=== PATIENT | female | born 1980 | race Caucasian/White ===

== ENCOUNTER 2018-11-15 12:56 | Emergency (ER) | payer OTHER ==
[~2018-11-15] VITALS: Ht 152.4 cm; Wt 62.6 kg
[2018-11-15] MEDS ORDERED: CONEX TABLET1 EACH (13:16)
[2018-11-15] MEDS ORDERED: SYNTHROID50 MCG (13:16)
== END 2018-11-15 15:05 | disposition home or self-care (01) ==
LOC: ER 12:56
DX: B34.9 Viral infection, unspecified (principal)

== ENCOUNTER → 2019-01-12 | Day surgery (SDC) | payer OTHER ==
[~2019-01-12] MED LIST: CONEX TABLET1 EACH; PERCOCET 5-3251 EACH PO; SYNTHROID50 MCG
== END | disposition home or self-care (01) ==
LOC: ADM 01-09 13:45 → CIR.AMB 09:48
DX: N84.0 Polyp of corpus uteri (principal); D25.0 Submucous leiomyoma of uterus

== ENCOUNTER 2020-11-02 10:41 | Emergency (ER) | payer OTHER ==
[~2020-11-02] VITALS: Ht 152.4 cm; Wt 65.8 kg
[2020-11-02] MEDS ORDERED: CONCEPT DHA CA1 EACH PO (16:37)
== END 2020-11-02 16:48 | disposition home or self-care (01) ==
LOC: ER 10:41
DX: O20.0 Threatened abortion (principal); O26.851 Spotting complicating pregnancy, first trimester; O36.80X1 Pregnancy with inconclusive fetal viability, fetus 1; Z3A.08 8 weeks gestation of pregnancy

== ENCOUNTER 2021-06-16 05:44 | Inpatient (IN) | payer OTHER ==
[~2021-06-16] VITALS: Ht 152.4 cm; Wt 2.7 kg
[~2021-06-16 05:44] MED LIST changes: +CONCEPT DHA CA1 EACH PO
[2021-06-16] MEDS ORDERED: FOLIC ACID20 MG (07:13)
[2021-06-16] MEDS ORDERED: NIFEDIPINE20 MG PO (07:15)
== END 2021-06-18 16:48 | disposition home or self-care (01) | DRG 787 ==
LOC: LDR 05:44 → SURG-SUITE 05:44 → O/R 13:57 → SURG-SUITE 14:27
PROVIDERS: ADMIT Specialist; ATTEND Specialist
PROC: 3E033VJ Introduction of Other Hormone into Peripheral Vein, Percutaneous Approach (ICD-10-PCS; 2021-06-16)
PROC: 4A1HXFZ Monitoring of Products of Conception, Cardiac Rhythm, External Approach (ICD-10-PCS; 2021-06-16)
PROC: 10D00Z1 Extraction of Products of Conception, Low, Open Approach (ICD-10-PCS; principal; 2021-06-16 14:00)
DX: O62.0 Primary inadequate contractions (principal); O41.03X0 Oligohydramnios, third trimester, not applicable or unspecified; O61.0 Failed medical induction of labor; O99.284 Endocrine, nutritional and metabolic diseases complicating childbirth; E03.9 Hypothyroidism, unspecified; Z3A.38 38 weeks gestation of pregnancy; Z37.0 Single live birth

== ENCOUNTER 2024-10-20 08:11 | Emergency (ER) | payer OTHER ==
[~2024-10-20] VITALS: Ht 152.4 cm; Wt 58.1 kg
[~2024-10-20 08:11] MED LIST changes: +ANTICONCEPTIVAS; +FOLIC ACID20 MG; +NIFEDIPINE20 MG PO; +PEPCID AC20 MG; +ZYRTEC10 M3 PO
[2024-10-20] MEDS ORDERED: 0.9 % SODIUM CHLORIDE 1,000 ML IV STA (09:09)
[2024-10-20] MEDS ORDERED: FAMOtidine 10 MG/ML (4ML VIAL) IV STA (09:11)
[2024-10-20] MEDS ORDERED: METOCLOPRAMIDE HCL 5 MG/ML VIAL IV STA (09:11)
[2024-10-20 09:33] LABS: HEMATOCRIT 43.2 % (36.0-45.00); HEMOGLOBIN 14.6 g/dL (12.0-15.00); MEAN CELL VOLUME 87.6 fL (80.00-100.00); MEAN CORPUSCULAR HEMOGLOBIN 29.6 pg (27.00-32.0); MEAN CORPUSCULAR HGB CONC 33.8 g/dl (32.0-36.0); PLATELET COUNT 268 K/uL (150-450); RED BLOOD COUNT 4.93 M/uL (4.00-6.00); RED CELL DISTRIBUTION WIDTH 13.5 % (11.5-14.5)
[2024-10-20 10:05] LABS: ALBUMIN 3.9 gm/dL (3.4-5.0); BILIRUBIN TOTAL 0.49 mg/dL (0.3-1.2); BILIRUBIN,CONJUGATED 0.14 mg/dL (0.0-0.2); BILIRUBIN,UNCONJUGATED 0.35 mg/dL (0.0-0.6); CALCIUM 9.1 mg/dL (8.5-10.1); CREATININE SERUM 0.73 mg/dL (0.55-1.02); GFR 87.43; POTASSIUM 4.1 mEq/L (3.5-5.1)
[2024-10-20 11:01] LABS: URINE BILIRRUBIN NEGATIVE (NEGATIVE); URINE BLOOD NEGATIVE; URINE GLUCOSE NEGATIVE (NEGATIVE); URINE KETONE NEGATIVE (NEGATIVE); URINE LEUKOCYTE NEGATIVE; URINE NITRATE NEGATIVE; URINE PROTEIN NEGATIVE (NEGATIVE); URINE UROBILINOGEN 0.2 E.U./dl
[2024-10-20 11:05] LABS: URINE BACTERIA 401.3 uL (0.0-1933); URINE EPITHELIAL CELLS 91.8 uL (0.0-38.8); URINE RBC 7.3 uL (0.0-20.8); URINE WBC 16.9 uL (0.0-23.2)
[2024-10-20 11:17] LABS: URINE APPEARANCE CLEAR; URINE CAST 0.29 uL (0.0-1.40); URINE COLOR YELLOW
== END 2024-10-20 12:46 | disposition home or self-care (01) ==
LOC: ER 08:11
PROVIDERS: General Practice
DX: K52.9 Noninfective gastroenteritis and colitis, unspecified (principal); R10.9 Unspecified abdominal pain; Z57.31 Occupational exposure to environmental tobacco smoke; Z91.018 Allergy to other foods